=== PATIENT | male | born 1950 | race Caucasian/White ===

== ENCOUNTER → 2016-11-20 | Outpatient (CLI) | payer MEDICARE ==
[~2016-11-20] MED LIST: CIPRO 500MG TA500 MG PO; DULERA1 AR1 IH; FLOMAX0.4 MG PO; MELOXICAM15 MG PO; MORPHINE SULFAT30 M3 PO; NORCO 325 MG-51 TAB PO; ROXICODONE5 MG PO; WARFARIN SODIU7.5 M1 PO; WARFARIN SODIUM10 M1 PO
[2016-11-20 11:43] LABS: LYMPH # 1.2 K/mm3 (0.7-4.5); LYMPH % 17.4 % (10-50)
[2016-11-20 13:36] LABS: BUN 21 mg/dL (7-18)
[2016-11-20 13:41] LABS: GFR (ESTIMATED) 74 ML/MIN (>60)
[2016-11-21 08:46] LABS: Immunoglobulin A, Qn 280 mg/dL (61-437); Immunoglobulin G, Qn 1111 mg/dL (700-1600); Immunoglobulin M, Qn 37 mg/dL (20-172)
[2016-11-21 09:38] LABS: Vitamin B12 1038 pg/mL (211-946)
[2016-11-27 04:39] LABS: Methylmalonic Acid 186 nmol/L (0-378)
== END ==
LOC: LAB 11:20
PROVIDERS: Specialist
DX: G62.9 Polyneuropathy, unspecified (principal); G47.33 Obstructive sleep apnea (adult) (pediatric); G93.5 Compression of brain; M47.812 Spondylosis without myelopathy or radiculopathy, cervical region; L40.50 Arthropathic psoriasis, unspecified; E11.40 Type 2 diabetes mellitus with diabetic neuropathy, unspecified